=== PATIENT | female | born 1985 | race Caucasian/White ===

== ENCOUNTER 2023-02-10 16:32 | Emergency (ER) | payer OTHER, SELFPAY ==
[2023-02-10 16:41] VITALS: BP 130/90; PULSE 102; RESP 16; TEMP 36.9; O2SAT 96; BMI 44.1
--- NOTE | 2023-02-10 16:50 | ED_ITS ---
HPI - General Adult General Stated complaint: BEE STING Time Seen by Provider: 02/10/23 16:36 Mode of arrival: walk-in History of Present Illness HPI narrative: patient is a 37-year-old female who presents to the emergency department for a bee sting to the right arm. She states she was stung by a hornet at work just prior to arrival. She has no history of bee sting ALLERGY. She has not had any lip swelling, tongue swelling, difficulty breathing. No concern for . She states after she was stung she began to feel nauseous and dizzy. She qualifies the dizziness as saying she feels like she could lay down and fall asleep . She has no other focal medical complaints and is noted to have stable vital signs. Related Data Previous Rx's Medication Instructions Recorded hydroxyzine HCl 25 mg tablet 25 mg PO Q6H PRN itching #20 tabs 02/10/23 prednisone 20 mg tablet 60 mg PO DAILY #12 tabs 02/10/23 Allergies Allergy/AdvReac Type Severity Reaction Status Date / Time methylprednisolone Allergy Severe Verified 02/10/23 16:41 [From Medrol] Penicillins Allergy Severe Verified 02/10/23 16:41 Review of Systems ROS Constitutional Denies: fever or chills Ears, nose, mouth, and throat Denies: throat pain Cardiovascular Denies: chest pain Respiratory Denies: shortness of breath or cough Gastrointestinal Reports: nausea; Denies: vomiting Musculoskeletal Denies: back pain Integumentary/Breast Denies: rash Neurological Denies: headache or numbness in extremities Allergic/Immunologic Denies: hives, throat swelling, tongue swelling, facial swelling or wheezing Exam Narrative Exam Narrative: Gen.: Awake, alert, in no distress; patient sitting upright on exam cart in no distress Head: Normocephalic, atraumatic ENT: Moist mucous membranes; no facial swelling Respiratory: No respiratory distress Extremities: Moves extremities equally, able to ambulate, drove herself to the Emergency Room Psych: Normal mood and affect Neuro: No focal neuro deficit Skin: Warm, dry, intact; erythema and minimal induration noted to the right medial bicep with no visible stinger or drainage Constitutional Vital Signs, click to edit/add: Last Vital Signs Temp 98.5 F 02/10/23 16:41 Pulse 102 H 02/10/23 16:41 Resp 16 02/10/23 16:41 BP 130/90 02/10/23 16:41 Pulse Ox 96 02/10/23 16:41 O2 Del Method Room Air 02/10/23 16:41 Course Vital Signs Vital signs: Vital Signs Temperature 98.5 F 02/10/23 16:41 Pulse Rate 102 H 02/10/23 16:41 Respiratory Rate 16 02/10/23 16:41 Blood Pressure 130/90 02/10/23 16:41 Pulse Oximetry 96 02/10/23 16:41 Oxygen Delivery Method Room Air 02/10/23 16:41 Temperature 98.5 F 02/10/23 16:41 Pulse Rate 102 H 02/10/23 16:41 Respiratory Rate 16 02/10/23 16:41 Blood Pressure 130/90 02/10/23 16:41 Pulse Oximetry 96 02/10/23 16:41 Oxygen Delivery Method Room Air 02/10/23 16:41 Medical Decision Making MDM Narrative Medical decision making narrative: patient was a benign exam, stable vital signs. Exam is consistent with localized ALLERGIC reaction to bee sting. She is treated with Zofran and prednisone in the Emergency Room. She wants to go back to work, she was not given any additional antihistamines, she took a Claritin prior to arrival. She will be prescribed steroids and Atarax for home. Follow-up with occupational health and return to the Emergency Room if symptoms change or worsen. Apply ice to the area. Medical Records Medical records reviewed: Yes I reviewed the patient's medical records Discharge Plan Discharge Clinical Impression: Bee sting Patient Disposition: Home, Self-Care Time of Disposition Decision: 16:55 Condition: Good Prescriptions / Home Meds: New prednisone 20 mg tablet 60 mg PO DAILY Qty: 12 0RF Rx Instructions: 3 tabs daily for 2 days, then 2 tabs daily for 2 days, then 1 tab daily for 2 days hydroxyzine HCl 25 mg tablet 25 mg PO Q6H PRN (Reason: itching) Qty: 20 0RF Instructions: Insect Bite or Sting (ED) Stand Alone Forms: Portal Instructions Referrals: [facility] [Outside] - 1 week
[2023-02-10] MEDS: PREDNISONE 20 MG TABLET 60 MG PO (17:02)
[2023-02-10] MEDS: ONDANSETRON 4 MG RAPDIS TABLET SL (17:02)
--- NOTE | 2023-02-10 17:12 | PC.NURSE ---
Pt reports getting stung by a hornet at work, on her right inner arm. She states she tried hydrocortisone cream and Claritin but felt nauseated and dizzy so came to the ER. Right inner arm is reddened .
== END 2023-02-10 17:21 | disposition home or self-care (01) ==
PROVIDERS: Emergency Provider Emergency Medicine
DX: T63.441A Toxic effect of venom of bees, accidental (unintentional), initial encounter (principal)
CPT/HCPCS: 99283